=== PATIENT | male | born 1965 | race Caucasian/White ===

== ENCOUNTER 2017-08-16 12:01 | Emergency (ER) | payer BC ==
[2017-08-16] MEDS ORDERED: ONDANSETRON 4 MG/2 ML VIAL IVP STA (12:18)
[2017-08-16] MEDS ORDERED: SODIUM CHLORIDE 0.9% 1,000 ML IV STA (12:18)
[2017-08-16] MEDS ORDERED: LORazepam 2 MG/ML INJ IV STA (12:19)
[2017-08-16] MEDS ORDERED: KETOROLAC 30 MG/ML 1 ML VIAL IVP STA (12:19)
[2017-08-16] MEDS ORDERED: MORPHINE SULFATE 4 MG/ML SYRINGE IVP STA (12:33)
[2017-08-16] MEDS ORDERED: MORPHINE SULFATE/PF 10MG/10ML VL IVP STA (12:35)
--- NOTE | 2017-08-16 12:41 | ED ---
General Adult HPI - General Source: patient, RN notes reviewed Mode of arrival: wheelchair Limitations: no limitations <Ray Coreas - Last Filed: 08/16/17 12:39> <Raymundo Haro - Last Filed: 08/16/17 13:29> - General Chief complaint: Abdominal Pain Stated complaint: Severe Abd Pain Time Seen by Provider: 08/16/17 12:15 - History of Present Illness Initial comments: Patient 52-year-old male significant past medical history for gastroparesis, diabetes, presented to the emergency room today with chief complaint of increased nausea vomiting abdominal pain that began yesterday. Patient's at bedside providing majority of history. States that his symptoms started yesterday with increased nausea vomiting and pain in the epigastric area. She states that the symptoms are consistent with gastroparesis that is had in the past. States he's had multiple ER visits in the past with a had given IV medications to help. Patient does admit that the symptoms are consistent. He denies any back pain. States pain is located in epigastric area. Denies any specific radiation. Patient denies any recent fever, chills, shortness of breath , chest pain, numbness or tingling, dysuria or hematuria, constipation or diarrhea, headaches or visual changes, or any other complaints. (Ray Coreas) Review of Systems ROS Other: All systems not noted in ROS Statement are negative. <Ray Coreas - Last Filed: 08/16/17 12:39> ROS Other: All systems not noted in ROS Statement are negative. <Raymundo Haro - Last Filed: 08/16/17 13:29> ROS Statement: Those systems with pertinent positive or pertinent negative responses have been documented in the HPI. Past Medical History Past Medical History: Diabetes Mellitus, Fibromyalgia, Rheumatoid Arthritis (RA) , Thyroid Disorder Additional Past Medical History / Comment(s): Menieres disease, History of Any Multi-Drug Resistant Organisms: None Reported Past Surgical History: Cholecystectomy Past Psychological History: Depression Smoking Status: Current every day smoker Past Alcohol Use History: None Reported Past Drug Use History: Marijuana <Ray Coreas - Last Filed: 08/16/17 12:39> General Exam Limitations: no limitations <Ray Coreas - Last Filed: 08/16/17 12:39> General appearance: alert, in no apparent distress Head exam: Present: atraumatic, normocephalic, normal inspection Eye exam: Present: normal appearance, PERRL, EOMI. Absent: scleral icterus, conjunctival injection, periorbital swelling ENT exam: Present: normal exam, mucous membranes moist Neck exam: Present: normal inspection. Absent: tenderness, meningismus, lymphadenopathy Respiratory exam: Present: normal lung sounds bilaterally. Absent: respiratory distress, wheezes, rales, rhonchi, stridor Cardiovascular Exam: Present: regular rate, normal rhythm, normal heart sounds. Absent: systolic murmur, diastolic murmur, rubs, gallop, clicks GI/Abdominal exam: Present: soft, normal bowel sounds. Absent: distended, tenderness, guarding, rebound, rigid Extremities exam: Present: normal inspection, full ROM, normal capillary refill. Absent: tenderness, pedal edema, joint swelling, calf tenderness Back exam: Present: normal inspection Neurological exam: Present: alert, oriented X3, CN II-XII intact Psychiatric exam: Present: normal affect, normal mood Skin exam: Present: warm, dry, intact, normal color. Absent: rash <Raymundo Haro - Last Filed: 08/16/17 13:29> - General Exam Comments Initial Comments: General: The patient is awake and alert, in moderate distress. Eye: Pupils are equal, round and reactive to light, extra-ocular movements are intact. No nystagmus. There is normal conjunctiva bilaterally. No signs of icterus. Ears, nose, mouth and throat: There are moist mucous membranes and no oral lesions. Neck: The neck is supple, there is no tenderness or JVD. Cardiovascular: There is a regular rate and rhythm. No murmur, rub or gallop is appreciated. Respiratory: Lungs are clear to auscultation, respirations are non-labored, breath sounds are equal. No wheezes, stridor, rales, or rhonchi. Gastrointestinal: Soft, non-distended. Tender to palpation in the epigastric. No masses or organomegaly noted. There is no rebound or guarding present. No CVA tenderness. Musculoskeletal: Normal ROM, no tenderness. Strength 5/5. Sensation intact. Pulses equal bilaterally 2+. Neurological: A&O x 3. CN II-XII intact, There are no obvious motor or sensory deficits. Coordination appears grossly intact. Speech is normal. Skin: Skin is warm and dry and no rashes or lesions are noted. (Ray Coreas) Course <Ray Coreas - Last Filed: 08/16/17 12:39> <Raymundo Haro - Last Filed: 08/16/17 13:29> Vital Signs 08/16/17 12:09 Temperature 97.9 F Pulse Rate 85 Respiratory 18 Rate O2 Sat by Pulse 97 Oximetry - Reevaluation(s) Reevaluation #1: 08/16/17 13:29 Patient has adequate symptom control currently. Patient asking to be discharged home (Raymundo Haro) Medical Decision Making <Ray Coreas - Last Filed: 08/16/17 12:39> - Lab Data Result diagrams: 08/16/17 12:34 08/16/17 12:34 <Raymundo Haro - Last Filed: 08/16/17 13:29> - Medical Decision Making 52 male the ER with acute on chronic abdominal pain. Patient has good pain control at this time. Patient can be discharged home (Raymundo Haro) - Lab Data Lab Results 08/16/17 08/16/17 08/16/17 Range/Units 12:34 12:34 12:34 WBC 12.2 H (3.8-10.6) k/uL RBC 4.30 (4.30-5.90) m/uL Hgb 13.3 (13.0-17.5) gm/dL Hct 38.1 L (39.0-53.0) % MCV 88.6 (80.0-100.0) fL MCH 30.9 (25.0-35.0) pg MCHC 34.8 (31.0-37.0) g/dL RDW 12.7 (11.5-15.5) % Plt Count 273 (150-450) k/uL Neutrophils % 83 % Lymphocytes % 10 % Monocytes % 5 % Eosinophils % 1 % Basophils % 0 % Neutrophils # 10.2 H (1.3-7.7) k/uL Lymphocytes # 1.2 (1.0-4.8) k/uL Monocytes # 0.6 (0-1.0) k/uL Eosinophils # 0.1 (0-0.7) k/uL Basophils # 0.0 (0-0.2) k/uL Sodium 140 (137-145) mmol/L Potassium 4.0 (3.5-5.1) mmol/L Chloride 104 (98-107) mmol/L Carbon Dioxide 25 (22-30) mmol/L Anion Gap 11 mmol/L BUN 18 (9-20) mg/dL Creatinine 0.83 (0.66-1.25) mg/dL Est GFR (CKD-EPI)AfAm >90 (>60 ml/min/1.73 sqM) Est GFR (CKD-EPI)NonAf >90 (>60 ml/min/1.73 sqM) Glucose 245 H (74-99) mg/dL Calcium 10.5 H (8.4-10.2) mg/dL Total Bilirubin 0.6 (0.2-1.3) mg/dL AST 23 (17-59) U/L ALT 43 (21-72) U/L Alkaline Phosphatase 108 (38-126) U/L Total Protein 6.9 (6.3-8.2) g/dL Albumin 4.4 (3.5-5.0) g/dL Amylase 132 H (30-110) U/L Lipase 407 H (23-300) U/L Acetone, Qual Negative (Negative) Disposition <Ray Coreas - Last Filed: 08/16/17 12:39> <Raymundo Haro - Last Filed: 08/16/17 13:29> Clinical Impression: Abdominal pain, Gastroparesis Disposition: HOME SELF-CARE Condition: Good Instructions: Abdominal Pain (ED) Referrals: Nonstaff,Physician [Primary Care Provider] - 1-2 days
[2017-08-16 12:47] LABS: Basophils % (A) 0 %; Eosinophils # (A) 0.1 k/uL (0-0.7); Eosinophils % (A) 1 %; HCT 38.1 % (39.0-53.0); HGB 13.3 gm/dL (13.0-17.5); Lymphocytes # (A) 1.2 k/uL (1.0-4.8); Lymphocytes % (A) 10 %; MCH 30.9 pg (25.0-35.0); MCHC 34.8 g/dL (31.0-37.0); MCV 88.6 fL (80.0-100.0); Mean Platelet Volume 9.8; Monocytes # (A) 0.6 k/uL (0-1.0); Monocytes % (A) 5 %; Neutrophils # (A) 10.2 k/uL (1.3-7.7); Neutrophils % (A) 83 %; Platelet Count 273 k/uL (150-450); RDW 12.7 % (11.5-15.5); WBC 12.2 k/uL (3.8-10.6)
[2017-08-16 13:01] LABS: ALT 43 U/L (21-72); AST 23 U/L (17-59); Albumin 4.4 g/dL (3.5-5.0); Alkaline Phosphatase 108 U/L (38-126); Amylase 132 U/L (30-110); Anion Gap 11 mmol/L; Blood Urea Nitrogen 18 mg/dL (9-20); Calcium 10.5 mg/dL (8.4-10.2); Carbon Dioxide 25 mmol/L (22-30); Chloride 104 mmol/L (98-107); Glucose 245 mg/dL (74-99); Lipase 407 U/L (23-300); Sodium 140 mmol/L (137-145); Total Bilirubin 0.6 mg/dL (0.2-1.3); Total Protein 6.9 g/dL (6.3-8.2)
[2017-08-16 13:37] VITALS: BP 115/76; PULSE 68; RESP 12; TEMP 97.8
== END 2017-08-16 14:05 | disposition home or self-care (01) ==
LOC: EC 12:01
DX: K31.84 Gastroparesis (principal); F17.200 Nicotine dependence, unspecified, uncomplicated; Z90.49 Acquired absence of other specified parts of digestive tract
CPT/HCPCS: 36415; 80053; 82150; 82009; 83690; 85025; 99283; 96374; 96375 ×3; 96361; J2060; J2405; J1885; J2270